=== PATIENT | female | born 2000 | race Caucasian/White ===

== ENCOUNTER 2021-06-17 17:57 | Emergency (ER) | payer BC, SELFPAY ==
[~2021-06-17] VITALS: Ht 162.6 cm; Wt 59.0 kg
[2021-06-17 18:16] VITALS: BP_SYST 127
[2021-06-17] MEDS ORDERED: ACETAMINOPHEN 500 MG TABLET PO ONE (19:45)
[2021-06-17] MEDS ORDERED: KETOROLAC TROMETHAMINE 60 MG/2 ML VIAL IM ONE (19:45)
[2021-06-17] MEDS ORDERED: NACL 0.9% 2,000 ML IV ONE (20:45)
[2021-06-17] MEDS ORDERED: IBUPROFEN 800 MG TABLET PO ONE (21:00)
[2021-06-17 21:15] LABS: BASOPHILS % (AUTO) 0.1 % (0.0-2.0); HEMATOCRIT 38.7 % (36-48); HEMOGLOBIN 13.3 g/dL (12.0-16.0); LYMPHOCYTES # (AUTO) 0.5 K/uL (1.0-5.5); LYMPHOCYTES % (AUTO) 7.8 % (20.5-51.5); MEAN CORPUSCULAR HEMOGLOBIN 29 pg (27-31); MEAN CORPUSCULAR HGB CONC 34 % (32-36); MEAN CORPUSCULAR VOLUME 85 fL (79.0-98.0); MONOCYTES # (AUTO) 0.6 K/uL (0.0-1.0); MONOCYTES % (AUTO) 8.3 % (1.7-9.3); NEUTROPHILS # (AUTO) 5.7 K/uL (1.8-7.7); NEUTROPHILS % (AUTO) 83.8 % (40.0-70.0); PLATELET COUNT (AUTO) 157 K/uL (130-430); RED BLOOD CELL COUNT(AUTO) 4.58 MIL/uL (4.2-6.2); RED CELL DISTRIBUTION WIDTH 12.6 % (9.0-15.0); WHITE BLOOD COUNT (AUTO) 6.8 K/uL (4.5-11.0)
[2021-06-17] MEDS ORDERED: cefTRIAXone 1 GM IVPB PREMIX 50 ML IV ONE (21:30)
[2021-06-17 21:33] LABS: CALCIUM 8.7 mg/dL (8.4-11.0); CREATININE 0.81 mg/dL (0.55-1.30); POTASSIUM 3.6 mmol/L (3.5-5.1)
[2021-06-17 21:40] LABS: ALBUMIN 3.4 g/dL (3.4-4.8); TOTAL BILIRUBIN 0.6 mg/dL (0.0-1.0)
[2021-06-17] MEDS ORDERED: IBUP-1969 PO (21:48)
[2021-06-17] MEDS ORDERED: CEPH-548 PO (21:48)
[2021-06-17 22:19] VITALS: BP_SYST 127
== END 2021-06-17 22:19 | disposition home or self-care (01) ==
LOC: SED 17:57
DX: U07.1 COVID-19 (principal); N39.0 Urinary tract infection, site not specified; T50.B95A Adverse effect of other viral vaccines, initial encounter; Z79.899 Other long term (current) drug therapy; Y92.89 Other specified places as the place of occurrence of the external cause
CPT/HCPCS: 36415; 71045; 80053; 81002; 83605; 85025; 86710; 87040; 87426; 96361; 96365; 96372; 99284; J0696; J1885; J7030